=== PATIENT | female | born 1990 | race Caucasian/White ===

== ENCOUNTER 2018-11-06 20:50 | Emergency (ER) | payer OTHER ==
[2018-11-06 21:00] VITALS: BP 125/91
--- NOTE | 2018-11-06 21:37 | ED Physician Documentation ---
PD HPI UPPER EXT INJURY - Stated complaint Stated Complaint: WRIST PX/FALL - Chief complaint Chief Complaint: Trauma Ext - History obtained from History obtained from: Patient - History of Present Illness Location: Right (This is a right-handed young woman who fell today while snowboarding directly onto her ulna and points to the distal right ulna as the site of pain and has some pain with range of motion. No other injuries. No possibility of .) Review of Systems Constitutional: reports: Reviewed and negative Cardiac: reports: Reviewed and negative Respiratory: reports: Reviewed and negative PD PAST MEDICAL HISTORY - Present Medications Home Medications: Ambulatory Orders Medication Instructions Recorded Confirmed Bupropion HCl [Wellbutrin Xl] 300 mg PO DAILY 11/06/18 11/06/18 Zolpidem [Ambien] 1 tab PO QPM PRN 11/06/18 11/06/18 - Allergies Allergies/Adverse Reactions: Allergies Allergy/AdvReac Type Severity Reaction Status Date / Time No Known Drug Allergies Allergy Verified 11/06/18 21:00 PD ED PE NORMAL - Vitals Vital signs reviewed: Yes - General General: Alert and oriented X 3, No acute distress - Extremities Extremities: Other (I appreciate no specific tenderness about the wrist or forearm. She does have pain with extremes of range of motion in flexion and extension of the right forearm. There is some swelling over the distal ulna. No deformity.) - Neuro Neuro: Alert and oriented X 3, Normal speech Results - Vitals Vitals: Vital Signs - 24 hr 11/06/18 20:58 Temperature 36.0 C L Heart Rate 85 Respiratory 14 Rate Blood Pressure 125/91 H O2 Saturation 100 Oxygen O2 Source Room air - Rads (name of study) XRs R wrist and FA Radiology: EMP read contemporaneously (Normal) Departure - Departure Disposition: Home, Self Care Clinical Impression: Right wrist sprain, Contusion of right arm Condition: Good Record reviewed to determine appropriate education?: Yes Instructions: ED Splint Care Velcro, ED Sprain Wrist Comments: Ibuprofen as needed for pain. Recheck with your doctor in 1 week if not better. Your blood pressure was elevated today on check into the emergency department. This does not mean that you have hypertension, it is a common phenomenon to come to the emergency department and have elevated blood pressure. I recommend that you see your primary care physician within the week to have it rechecked when you are feeling better. Forms: Activity restrictions Discharge Date/Time: 11/06/18 21:44
--- NOTE | 2018-11-06 21:52 | XRAY Report ---
Reason: fell injured RFA from snowboarding Procedure Date: 11/06/2018 Accession Number: [id number] / [id number] Procedure: XR - Forearm RT CPT Code: FULL RESULT: EXAM: RIGHT FOREARM RADIOGRAPHY EXAM DATE: 11/06/2018 09:04 PM. CLINICAL HISTORY: Fell injured RFA from snowboarding. COMPARISON: None. TECHNIQUE: 2 views. FINDINGS: Bones: Normal. No fractures or bone lesions. Joints: Normal. No effusions or subluxations in the visualized wrist or elbow joints. Soft Tissues: Normal. No soft tissue swelling. IMPRESSION: Normal forearm radiography. [facility]
--- NOTE | 2018-11-06 21:53 | XRAY Report ---
Reason: wrist inj Procedure Date: 11/06/2018 Accession Number: [id number] / [id number] Procedure: XR - Wrist 4 View RT CPT Code: FULL RESULT: EXAM: RIGHT WRIST RADIOGRAPHY EXAM DATE: 11/06/2018 09:24 PM. CLINICAL HISTORY: Wrist inj. COMPARISON: None. TECHNIQUE: 3 views. FINDINGS: Bones: Normal. No fractures or bone lesions. Joints: Normal. No subluxations. Soft Tissues: Normal. No soft tissue swelling. IMPRESSION: Normal wrist radiography. [facility]
== END 2018-11-06 21:44 | disposition home or self-care (01) ==
LOC: ED 20:50
DX: S63.501A Unspecified sprain of right wrist, initial encounter (principal); S50.11XA Contusion of right forearm, initial encounter; V00.311A Fall from snowboard, initial encounter; Y93.23 Activity, snow (alpine) (downhill) skiing, snowboarding, sledding, tobogganing and snow tubing; R03.0 Elevated blood-pressure reading, without diagnosis of hypertension
CPT/HCPCS: 99282; 99283